=== PATIENT | female | born 1990 | race Caucasian/White ===

== ENCOUNTER 2021-07-12 08:45 | Inpatient (IN) | payer OTHER ==
[~2021-07-12] VITALS: Ht 157.5 cm; Wt 3.6 kg
[~2021-07-12 08:45] MED LIST: PRENATAL 19 CH1 EAC1 PO; PRENATAL TABLE1 EAC2 PO
== END 2021-07-21 14:37 | disposition home or self-care (01) | DRG 785 ==
LOC: OB/GYN 07-18 07:00 → O/R 07-18 09:30 → SURG-SUITE 07-18 09:30
PROVIDERS: ADMIT Obstetrics & Gynecology; ATTEND Obstetrics & Gynecology
PROC: 0UB70ZZ Excision of Bilateral Fallopian Tubes, Open Approach (ICD-10-PCS; 2021-07-18)
PROC: 4A1HXFZ Monitoring of Products of Conception, Cardiac Rhythm, External Approach (ICD-10-PCS; 2021-07-18)
PROC: 10D00Z1 Extraction of Products of Conception, Low, Open Approach (ICD-10-PCS; principal; 2021-07-18 07:00)
DX: O34.211 Maternal care for low transverse scar from previous cesarean delivery (principal); Z30.2 Encounter for sterilization; Z3A.39 39 weeks gestation of pregnancy; Z37.0 Single live birth